=== PATIENT | female | born 1935 | race Caucasian/White ===

== ENCOUNTER 2018-12-26 07:01 | Emergency (ER) | payer OTHER ==
[~2018-12-26] VITALS: Ht 152.4 cm; Wt 63.5 kg
[~2018-12-26 07:01] MED LIST: ALLOPURINOL5 GM PO; BAYER CHEWABLE81 MG PO; ENALAPRIL MALEA20 MG PO; LEVOTHYROXIN0.075 MG PO; QUINU10 PD; ZOCOR20 MG PO
[2018-12-26 07:43] VITALS: BP 139/74
== END 2018-12-26 07:43 | disposition home or self-care (01) ==
LOC: M.ERS 07:01
DX: R04.0 Epistaxis (principal); R06.2 Wheezing; E78.00 Pure hypercholesterolemia, unspecified; I10 Essential (primary) hypertension

== ENCOUNTER 2021-01-09 11:47 | Emergency (ER) | payer MEDICARE ==
[~2021-01-09] VITALS: Ht 152.4 cm; Wt 71.7 kg
[2021-01-09] MEDS ORDERED: KEFLEX500 M1 PO (12:17)
[2021-01-09] MEDS ORDERED: BACTRIM DS TAB1 EACH PO (12:17)
[2021-01-09 12:43] VITALS: BP 172/88
== END 2021-01-09 12:44 | disposition home or self-care (01) ==
LOC: M.ERS 11:47
DX: S01.501A Unspecified open wound of lip, initial encounter (principal); L02.01 Cutaneous abscess of face; I10 Essential (primary) hypertension; E78.00 Pure hypercholesterolemia, unspecified; E03.9 Hypothyroidism, unspecified; X58.XXXA Exposure to other specified factors, initial encounter; Y93.89 Activity, other specified; Y92.89 Other specified places as the place of occurrence of the external cause; Y99.8 Other external cause status